=== PATIENT | male | born 1945 | race American Indian/Alaskan Native ===

== ENCOUNTER 2019-07-28 06:45 | Emergency (ER) | payer MEDICARE ==
[2019-07-28] MEDS ORDERED: dilTIAZem 25 MG/5 ML INJ IV ONE (06:59)
[2019-07-28] MEDS ORDERED: dexAMETHasone 4 MG/ML VIAL IV ONE (07:12)
[2019-07-28] MEDS ORDERED: ONDANSETRON 4 MG/2 ML INJ IV ONE (07:12)
[2019-07-28] MEDS ORDERED: MORPHINE 2 MG/1 ML INJ IV ONE ×2 (07:12→09:03)
[2019-07-28 07:33] LABS: Basophils % (Auto) 0.4 % (0.0-1.8); Eosinophils % (Auto) 0.2 % (0.0-4.3); Hematocrit 40.7 % (35.5-45.6); Hemoglobin 13.2 gm/dl (11.8-15.2); Lymphocytes # (Auto) 0.6 K/mm3 (1.2-5.4); Lymphocytes % (Auto) 7.1 % (13.4-35.0); Mean Corpuscular HGB Conc 33 % (32-34); Mean Corpuscular Volume 90 fl (84-94); Monocytes # (Auto) 0.5 K/mm3 (0.0-0.8); Monocytes % (Auto) 6.6 % (0.0-7.3); Platelet Count 148 K/mm3 (140-440); Red Blood Count 4.54 M/mm3 (3.65-5.03)
[2019-07-28 07:39] LABS: Alanine Aminotransferase 11 units/L (7-56); Albumin 3.7 g/dL (3.9-5); BUN/Creatinine Ratio 13; Bilirubin,Direct 0.4 mg/dL (0-0.2); Blood Urea Nitrogen 16 mg/dL (9-20); Calcium 9.2 mg/dL (8.4-10.2); Hemolysis Index 7
--- NOTE | 2019-07-28 07:39 | XRay Report ---
CHEST 1 VIEW INDICATION / CLINICAL INFORMATION: Dysrhythmia. COMPARISON: 08/07/2013 FINDINGS: SUPPORT DEVICES: None. HEART / MEDIASTINUM: Moderately enlarged. LUNGS / PLEURA: No significant pulmonary or pleural abnormality. No pneumothorax. ADDITIONAL FINDINGS: No significant additional findings. IMPRESSION: 1. No significant change Signer Name: Rodrigue Posey MD Signed: 07/28/2019 7:35 AM Workstation Name: [id number]
[2019-07-28 07:40] LABS: Creatine Kinase MB < 1.0 ng/mL (0.0-4.0)
[2019-07-28 07:43] LABS: INR 1.63 (0.87-1.13)
[2019-07-28 07:44] LABS: Partial Thromboplastin Time 29.5 Sec. (24.2-36.6)
--- NOTE | 2019-07-28 08:20 | Emergency Department Report ---
ED General Adult HPI - General Chief complaint: Arrhythmia/Palpitations Stated complaint: RT LEG PAIN Time Seen by Provider: 07/28/19 06:55 Source: patient, EMS Mode of arrival: Stretcher Limitations: No Limitations - History of Present Illness Initial comments: This is a 74-year-old male who presents to the hospital for an apparent gout flare. He has a history of chronic atrial fibrillation and right DVT on his route so. He presents with information from his vascular doctor who he saw on 07/24/2019. He states that he has a blockage in a "artery that goes back to the heart" of his right leg. I presume he is referring to his known right DVT. He is not having problems with his right leg whatsoever. He presents to the emergency department for what appears to be exquisite pain particularly of the left first metatarsal fracture phalangeal joint has some pain over the dorsum of his foot. He denies fever or chills. He admits he has had pain like this before related to his gout. He does have a history of diabetes. His prehospital glucose was 220 he states. -: Gradual, hour(s), days(s) Location: right, lower extremity Radiation: non-radiation Severity scale (0 -10): 0 Quality: aching Consistency: constant Improves with: none Worsens with: none Associated Symptoms: denies other symptoms Treatments Prior to Arrival: other (chronic gout medication) - Related Data Home Medications Medication Instructions Recorded Confirmed Last Taken ALBUTEROL Inhaler (OR & NICU) 18 mcg INHALATION BID 08/03/13 11/19/13 11/18/13 [ProAir HFA Inhaler] Allopurinol [Zyloprim] 100 mg PO QDAY 08/03/13 11/19/13 11/18/13 Cholecalciferol (Vitamin D3) 1,000 unit PO DAILY 08/03/13 11/19/13 11/18/13 [Vitamin D3] Fluticasone Propionate [Flonase] 50 mcg INHALATION BID PRN 08/03/13 11/19/13 11/18/13 Furosemide [Lasix] 40 mg PO DAILY 08/03/13 11/19/13 11/18/13 Lisinopril [Zestril TAB] 40 mg PO DAILY 08/03/13 11/19/13 11/18/13 Potassium 10 mg PO QDAY 08/03/13 11/19/13 11/18/13 predniSONE [Deltasone] 10 mg PO DAILY 08/03/13 11/19/13 11/18/13 Rivaroxaban [Xarelto] 20 mg PO QDAY 11/19/13 11/19/13 11/19/13 Previous Rx's Medication Instructions Recorded Last Taken Type HYDROcodone/APAP 5-325 [[place] 1 each PO Q6HR PRN #12 tablet 08/09/13 11/18/13 Rx 5/325 mg] Simethicone [Simethicone Gas 125 mg PO Q6HR PRN #20 tab.chew 08/09/13 11/18/13 Rx Relief] Colchicine 0.6 mg PO BID #30 capsule 07/28/19 Unknown Rx HYDROcodone/APAP 7.5-325 [[place] 1 each PO Q6HR PRN #10 tablet 07/28/19 Unknown Rx 7.5/325] Allergies Allergy/AdvReac Type Severity Reaction Status Date / Time dabigatran etexilate mesylate Allergy Itching Verified 08/03/13 21:04 [From Pradaxa] rivaroxaban [From Xarelto] Allergy Itching Verified 08/03/13 21:06 warfarin [Warfarin] Allergy Itching Verified 08/03/13 21:03 Iodinated Contrast Media AdvReac Severe CAN'T Verified 07/28/19 07:03 REMEMBER BLOOD THINNERS AdvReac Unknown CAN'T Uncoded 08/03/13 14:12 REMEMBER ED Review of Systems ROS: Stated complaint: RT LEG PAIN Other details as noted in HPI Constitutional: denies: chills, fever Eyes: denies: eye pain, eye discharge, vision change ENT: denies: ear pain, throat pain Respiratory: denies: cough, shortness of breath, wheezing Cardiovascular: denies: chest pain, palpitations Endocrine: no symptoms reported Gastrointestinal: denies: abdominal pain, nausea, diarrhea Genitourinary: denies: urgency, dysuria Musculoskeletal: as per HPI, joint swelling, arthralgia. denies: back pain Skin: denies: rash, lesions Neurological: denies: headache, weakness, paresthesias Psychiatric: denies: anxiety, depression Hematological/Lymphatic: denies: easy bleeding, easy bruising ED Past Medical Hx - Past Medical History Hx Hypertension: Yes Hx CVA: Yes Hx Heart Attack/AMI: Yes Hx Congestive Heart Failure: Yes Hx Deep Vein Thrombosis: Yes Hx Pulmonary Embolism: Yes Hx HIV: No Additional medical history: DVT - Surgical History Additional Surgical History: anthony filter - Social History Smoking Status: Never Smoker Substance Use Type: None - Medications Home Medications: Home Medications Medication Instructions Recorded Confirmed Last Taken Type ALBUTEROL Inhaler (OR & NICU) 18 mcg INHALATION BID 08/03/13 11/19/13 11/18/13 History [ProAir HFA Inhaler] Allopurinol [Zyloprim] 100 mg PO QDAY 08/03/13 11/19/13 11/18/13 History Cholecalciferol (Vitamin D3) 1,000 unit PO DAILY 08/03/13 11/19/13 11/18/13 History [Vitamin D3] Fluticasone Propionate [Flonase] 50 mcg INHALATION BID PRN 08/03/13 11/19/13 11/18/13 History Furosemide [Lasix] 40 mg PO DAILY 08/03/13 11/19/13 11/18/13 History Lisinopril [Zestril TAB] 40 mg PO DAILY 08/03/13 11/19/13 11/18/13 History Potassium 10 mg PO QDAY 08/03/13 11/19/13 11/18/13 History predniSONE [Deltasone] 10 mg PO DAILY 08/03/13 11/19/13 11/18/13 History HYDROcodone/APAP 5-325 [[place] 1 each PO Q6HR PRN #12 tablet 08/09/13 11/19/13 11/18/13 Rx 5/325 mg] Simethicone [Simethicone Gas 125 mg PO Q6HR PRN #20 tab.chew 08/09/13 11/19/13 11/18/13 Rx Relief] Rivaroxaban [Xarelto] 20 mg PO QDAY 11/19/13 11/19/13 11/19/13 History Colchicine 0.6 mg PO BID #30 capsule 07/28/19 Unknown Rx HYDROcodone/APAP 7.5-325 [[place] 1 each PO Q6HR PRN #10 tablet 07/28/19 Unknown Rx 7.5/325] ED Physical Exam - General Limitations: No Limitations General appearance: alert, in no apparent distress, obese - Head Head exam: Present: atraumatic, normocephalic - Eye Eye exam: Present: normal appearance. Absent: scleral icterus - ENT ENT exam: Present: mucous membranes moist - Neck Neck exam: Present: normal inspection - Respiratory Respiratory exam: Present: normal lung sounds bilaterally. Absent: respiratory distress - Cardiovascular Cardiovascular Exam: Present: tachycardia (low 100s), irregular rhythm. Absent: systolic murmur, diastolic murmur, rubs, gallop - GI/Abdominal GI/Abdominal exam: Present: soft, normal bowel sounds. 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 Absent: motor sensory deficit - Psychiatric Psychiatric exam: Present: normal affect, normal mood - Skin Skin exam: Present: warm, dry, intact, normal color. Absent: rash ED Course Vital Signs 07/28/19 07/28/19 07/28/19 06:50 06:51 06:52 Temperature 98.2 F Pulse Rate 110 H 126 H Respiratory 17 21 Rate Blood Pressure Blood Pressure [Left] O2 Sat by Pulse 96 92 Oximetry 07/28/19 07/28/19 07/28/19 06:53 07:29 07:31 Temperature Pulse Rate 120 H 101 H Respiratory 17 13 17 Rate Blood Pressure 140/79 Blood Pressure 115/82 [Left] O2 Sat by Pulse 92 95 96 Oximetry 07/28/19 07/28/19 07/28/19 07:33 08:28 08:30 Temperature Pulse Rate 96 H 91 H 95 H Respiratory Rate Blood Pressure 123/99 Blood Pressure 123/99 [Left] O2 Sat by Pulse Oximetry - Reevaluation(s) Reevaluation #1: Pain has improved with medication. Workup is otherwise unremarkable. Patient's heart rate is in the 90s. He will be given some additional analgesia and discharge is appropriate. We'll avoid Indocin as he is on anticoagulation. I can place him on some colchicine and [place]. He is instructed concerning the possibility of hyperglycemia after Decadron. He states he can check his sugars. He has appointment with his primary care provider on Tuesday. 07/28/19 09:14 07/28/19 09:15 ED Medical Decision Making - Lab Data Result diagrams: 07/28/19 07:02 07/28/19 07:02 Laboratory Results - last 24 hr 07/28/19 07/28/19 07/28/19 07:02 07:02 07:02 WBC 8.0 RBC 4.54 Hgb 13.2 Hct 40.7 MCV 90 MCH 29 MCHC 33 RDW 15.0 Plt Count 148 Lymph % (Auto) 7.1 L [place] % (Auto) 6.6 Eos % (Auto) 0.2 Baso % (Auto) 0.4 Lymph # 0.6 L [place] # 0.5 Eos # 0.0 Baso # 0.0 Seg Neutrophils % 85.7 H Seg Neutrophils # 6.9 PT 19.6 H INR 1.63 H APTT 29.5 Sodium 140 Potassium 3.8 Chloride 98.9 Carbon Dioxide 22 Anion Gap 23 BUN 16 Creatinine 1.2 Estimated GFR > 60 BUN/Creatinine Ratio 13 Glucose 260 H Calcium 9.2 Magnesium 1.00 L Total Bilirubin 1.10 Direct Bilirubin 0.4 H Indirect Bilirubin 0.7 AST 12 ALT 11 Alkaline Phosphatase 82 Total Creatine Kinase 57 CK-MB (CK-2) < 1.0 CK-MB (CK-2) Rel Index 1.7 Troponin T < 0.010 Total Protein 7.2 Albumin 3.7 L Albumin/Globulin Ratio 1.1 TSH 07/28/19 07:02 WBC RBC Hgb Hct MCV MCH MCHC RDW Plt Count Lymph % (Auto) [place] % (Auto) Eos % (Auto) Baso % (Auto) Lymph # [place] # Eos # Baso # Seg Neutrophils % Seg Neutrophils # PT INR APTT Sodium Potassium Chloride Carbon Dioxide Anion Gap BUN Creatinine Estimated GFR BUN/Creatinine Ratio Glucose Calcium Magnesium Total Bilirubin Direct Bilirubin Indirect Bilirubin AST ALT Alkaline Phosphatase Total Creatine Kinase CK-MB (CK-2) CK-MB (CK-2) Rel Index Troponin T Total Protein Albumin Albumin/Globulin Ratio TSH 1.780 Critical care attestation.: If time is entered above; I have spent that time in minutes in the direct care of this critically ill patient, excluding procedure time. ED Disposition Clinical Impression: Acute gouty arthritis, Atrial fibrillation, chronic Hyperglycemia due to type 2 diabetes mellitus Qualifiers: Diabetes mellitus long-term insulin use: without long-term use Qualified Code(s): E11.65 - Type 2 diabetes mellitus with hyperglycemia Disposition: - TO HOME OR SELFCARE Is pt being admited?: No Does the pt Need Aspirin: No Condition: Stable Instructions: Diabetes Mellitus Type 2 in Adults (ED) Additional Instructions: Check your blood sugar at least 2 times a day. The conjunctivae and shot he received may cause your blood sugar to elevate. It is possible that he may need to increase your metformin or even use insulin. If your blood sugar is going up you may take 2 metformin instead of one twice a day. It is very high come back to the emergency department. See her physician on Tuesday as planned. Rx as directed. Prescriptions: Colchicine 0.6 mg PO BID #30 capsule HYDROcodone/APAP 7.5-325 [[place] 7.5/325] 1 each PO Q6HR PRN #10 tablet PRN Reason: Pain Referrals: usual, primary care physician [Other] - 2-3 Days Time of Disposition: 09:18
[2019-07-28 08:29] VITALS: BP 123/99
== END 2019-07-28 10:35 | disposition home or self-care (01) ==
LOC: ED 06:45
DX: M10.9 Gout, unspecified (principal); I48.91 Unspecified atrial fibrillation; E11.65 Type 2 diabetes mellitus with hyperglycemia; I21.9 Acute myocardial infarction, unspecified; I82.409 Acute embolism and thrombosis of unspecified deep veins of unspecified lower extremity; I26.99 Other pulmonary embolism without acute cor pulmonale; Z86.73 Personal history of transient ischemic attack (TIA), and cerebral infarction without residual deficits; Z98.890 Other specified postprocedural states; Z79.899 Other long term (current) drug therapy; Z88.8 Allergy status to other drugs, medicaments and biological substances
CPT/HCPCS: 36415; 71045; 80048; 80076; 82550; 82553; 83735; 84443; 84484; 85025; 85610; 85730; 93005; 93010; 96374; 96375; 96376; 99284; J1100; J2270; J2405

== ENCOUNTER 2021-05-12 15:06 | Emergency (ER) | payer MEDICARE ==
[2021-05-12] MEDS ORDERED: SODIUM CHLORIDE 0.9% 1000 ML 1,000 ML IV ONE (18:11)
[2021-05-12 18:42] LABS: Basophils % (Auto) 0.6 % (0.0-1.8); Eosinophils % (Auto) 0.4 % (0.0-4.3); Hematocrit 46.5 % (35.5-45.6); Hemoglobin 15.2 gm/dl (11.8-15.2); Lymphocytes % (Auto) 11.8 % (13.4-35.0); Mean Corpuscular HGB Conc 33 % (32-34); Mean Corpuscular Volume 92 fl (84-94); Monocytes # (Auto) 0.9 K/mm3 (0.0-0.8); Monocytes % (Auto) 10.6 % (0.0-7.3); Platelet Count 160 K/mm3 (140-440); Red Blood Count 5.05 M/mm3 (3.65-5.03); Red Cell Distribution Width 16.4 % (13.2-15.2)
--- NOTE | 2021-05-12 18:54 | Event Note ---
ED Screening Note Date of service: 05/12/21 Time: 18:53 ED Screening Note: Patient complains of left ankle and right knee gout flare for the past 5 days History of gout and currently on allopurinol States he ran out of his colchicine Patient noted to have a blood pressure of 74/53, and 72/60 on repeat He denies chest pain, shortness of breath, dizziness, or headache History of diabetes, A. fib, and DVT This initial assessment/diagnostic orders/clinical plan/treatment(s) is/are subject to change based on patients health status, clinical progression and re- assessment by fellow clinical providers in the ED. Further treatment and workup at subsequent clinical providers discretion. Patient/guardian urged not to elope from the ED as their condition may be serious if not clinically assessed and managed. Initial orders include: Labs EKG 1 L normal saline Charge nurse Magdalena Moreno alerted
[2021-05-12 19:02] LABS: Alanine Aminotransferase 19 units/L (7-56); Albumin 3.8 g/dL (3.9-5); BUN/Creatinine Ratio 16; Blood Urea Nitrogen 18 mg/dL (9-20); Calcium 9.9 mg/dL (8.4-10.2); Hemolysis Index 9
[2021-05-12 22:06] LABS: Bilirubin,Urine NEG (Negative); Blood,Urine MOD (Negative); Color,Urine Yellow (Yellow); Mucus,Urine FEW /HPF
[2021-05-12] MEDS ORDERED: oxyCODONE /ACETAMINOPHEN 5-325MG TAB PO ONE (22:27)
--- NOTE | 2021-05-12 22:31 | Emergency Department Report ---
ED Lower Extremity HPI - General Chief Complaint: Extremity Problem,Nontraumatic Stated Complaint: GOUT FLARE UP Time Seen by Provider: 05/12/21 18:52 Source: patient Mode of arrival: Wheelchair Limitations: No Limitations - History of Present Illness Initial Comments: 76-year-old male with a past medical history of gout, hypertension atrial fibrillation currently on Xarelto, DVT with filter placement, CEA, and "poor circulation" presents to the hospita complaining of pain and swelling to left ankle and pain to left knee secondary to gout flare for the past 5 days. Patient states that symptoms started after accidentally twisting his left ankle. Patient take allopurinol and has run out of colchicine. Initial BP in triage 74/53 without tachycardia. Patient does not endorse feeling weak, lightheaded, and denies fever. Aspirin 3 mL normal saline in triage blood pressure improved - Related Data Home Medications Medication Instructions Recorded Confirmed Last Taken Albuterol Mdi (or & Nicu Only) 18 mcg INHALATION BID 08/03/13 11/19/13 11/18/13 [ProAir HFA Inhaler] Cholecalciferol (Vitamin D3) 1,000 unit PO DAILY 08/03/13 11/19/13 11/18/13 [Vitamin D3] Fluticasone Propionate [Flonase] 50 mcg INHALATION BID PRN 08/03/13 11/19/13 11/18/13 Furosemide [Lasix] 40 mg PO DAILY 08/03/13 11/19/13 11/18/13 Potassium 10 mg PO QDAY 08/03/13 11/19/13 11/18/13 allopurinoL [Zyloprim] 100 mg PO QDAY 08/03/13 11/19/13 11/18/13 lisinopriL [Zestril TAB] 40 mg PO DAILY 08/03/13 11/19/13 11/18/13 predniSONE 10 mg PO DAILY 08/03/13 11/19/13 11/18/13 Rivaroxaban [Xarelto] 20 mg PO QDAY 11/19/13 11/19/13 11/19/13 Previous Rx's Medication Instructions Recorded Last Taken Type HYDROcodone/APAP 5-325 [[place] 1 each PO Q6HR PRN #12 tablet 08/09/13 11/18/13 Rx 5/325 mg] Simethicone [Simethicone Gas 125 mg PO Q6HR PRN #20 tab.chew 08/09/13 11/18/13 Rx Relief] Colchicine 0.6 mg PO BID #30 capsule 07/28/19 Unknown Rx HYDROcodone/APAP 7.5-325 [[place] 1 each PO Q6HR PRN #10 tablet 07/28/19 Unknown Rx 7.5/325] Colchicine [Colcrys] 0.6 mg PO Q1HR #2 tab 05/12/21 Unknown Rx oxyCODONE /ACETAMINOPHEN [Percocet 1 tab PO Q6HR PRN #15 tab 05/12/21 Unknown Rx 5/325] Allergies Allergy/AdvReac Type Severity Reaction Status Date / Time dabigatran etexilate mesylate Allergy Itching Verified 08/03/13 21:04 [From Pradaxa] rivaroxaban [From Xarelto] Allergy Itching Verified 08/03/13 21:06 warfarin [Warfarin] Allergy Itching Verified 08/03/13 21:03 Iodinated Contrast Media AdvReac Severe CAN'T Verified 07/28/19 07:03 REMEMBER BLOOD THINNERS AdvReac Unknown CAN'T Uncoded 08/03/13 14:12 REMEMBER ED Review of Systems ROS: Stated complaint: GOUT FLARE UP Other details as noted in HPI Comment: All other systems reviewed and negative ED Past Medical Hx - Past Medical History Previous Medical History?: Yes Hx Hypertension: Yes Hx CVA: Yes Hx Heart Attack/AMI: Yes Hx Congestive Heart Failure: Yes Hx Diabetes: Yes Hx Deep Vein Thrombosis: Yes Hx Pulmonary Embolism: Yes Hx HIV: No Additional medical history: DVT - Surgical History Past Surgical History?: Yes Additional Surgical History: anthony filter - Social History Smoking Status: Never Smoker Substance Use Type: None - Medications Home Medications: Home Medications Medication Instructions Recorded Confirmed Last Taken Type Albuterol Mdi (or & Nicu Only) 18 mcg INHALATION BID 08/03/13 11/19/13 11/18/13 History [ProAir HFA Inhaler] Cholecalciferol (Vitamin D3) 1,000 unit PO DAILY 08/03/13 11/19/13 11/18/13 History [Vitamin D3] Fluticasone Propionate [Flonase] 50 mcg INHALATION BID PRN 08/03/13 11/19/13 11/18/13 History Furosemide [Lasix] 40 mg PO DAILY 08/03/13 11/19/13 11/18/13 History Potassium 10 mg PO QDAY 08/03/13 11/19/13 11/18/13 History allopurinoL [Zyloprim] 100 mg PO QDAY 08/03/13 11/19/13 11/18/13 History lisinopriL [Zestril TAB] 40 mg PO DAILY 08/03/13 11/19/13 11/18/13 History predniSONE 10 mg PO DAILY 08/03/13 11/19/13 11/18/13 History HYDROcodone/APAP 5-325 [[place] 1 each PO Q6HR PRN #12 tablet 08/09/13 11/19/13 11/18/13 Rx 5/325 mg] Simethicone [Simethicone Gas 125 mg PO Q6HR PRN #20 tab.chew 08/09/13 11/19/13 11/18/13 Rx Relief] Rivaroxaban [Xarelto] 20 mg PO QDAY 11/19/13 11/19/13 11/19/13 History Colchicine 0.6 mg PO BID #30 capsule 07/28/19 Unknown Rx HYDROcodone/APAP 7.5-325 [[place] 1 each PO Q6HR PRN #10 tablet 07/28/19 Unknown Rx 7.5/325] Colchicine [Colcrys] 0.6 mg PO Q1HR #2 tab 05/12/21 Unknown Rx oxyCODONE /ACETAMINOPHEN [Percocet 1 tab PO Q6HR PRN #15 tab 05/12/21 Unknown Rx 5/325] ED Physical Exam - General Limitations: No Limitations - Other Other exam information: General: No acute distress Head: Atraumatic Eyes: normal appearance ENT: Moist mucous membranes Neck: Normal appearance, no midline tenderness Chest: Clear to auscultation bilaterally CV: Irregularly irregular rhythm. Normal rate Abdomen: Soft, normal bowel sounds, nontender, nondistended, no rebound or guarding Back: Normal inspection Extremity: Bilateral pedal and ankle edema. Left ankle greater than right and warm to touch. Left knee warm to the touch. No skin redness noted. Patient left ankle area and left knee area are warm to touch. Limited movement seconda ry to pain. Neuro: Alert O x 3, no facial asymmetry, speech clear, no gross motor sensory deficit Psych: Appropriate behavior Skin: No rash ED Course Vital Signs 05/12/21 05/12/21 17:58 21:23 Temperature 98.9 F Pulse Rate 62 76 Respiratory 16 16 Rate Blood Pressure 133/93 Blood Pressure 74/53 [Right] O2 Sat by Pulse 97 95 Oximetry ED Lower Extremity MDM - Lab Data Result diagrams: 05/12/21 18:17 05/12/21 18:17 Lab Results 05/12/21 05/12/21 05/12/21 Range/Units 18:17 18:17 18:17 WBC 8.4 (4.5-11.0) K/mm3 RBC 5.05 H (3.65-5.03) M/mm3 Hgb 15.2 (11.8-15.2) gm/dl Hct 46.5 H (35.5-45.6) % MCV 92 (84-94) fl MCH 30 (28-32) pg MCHC 33 (32-34) % RDW 16.4 H (13.2-15.2) % Plt Count 160 (140-440) K/mm3 Lymph % (Auto) 11.8 L (13.4-35.0) % [place] % (Auto) 10.6 H (0.0-7.3) % Eos % (Auto) 0.4 (0.0-4.3) % Baso % (Auto) 0.6 (0.0-1.8) % Lymph # (Auto) 1.0 L (1.2-5.4) K/mm3 [place] # (Auto) 0.9 H (0.0-0.8) K/mm3 Eos # (Auto) 0.0 (0.0-0.4) K/mm3 Baso # (Auto) 0.0 (0.0-0.1) K/mm3 Seg Neutrophils % 76.6 H (40.0-70.0) % Seg Neutrophils # 6.4 (1.8-7.7) K/mm3 Sodium 137 (137-145) mmol/L Potassium 3.9 (3.6-5.0) mmol/L Chloride 96.3 L (98-107) mmol/L Carbon Dioxide 24 (22-30) mmol/L Anion Gap 21 mmol/L BUN 18 (9-20) mg/dL Creatinine 1.1 (0.8-1.3) mg/dL Estimated GFR > 60 ml/min BUN/Creatinine Ratio 16 % Glucose 171 H (75-100) mg/dL Calcium 9.9 (8.4-10.2) mg/dL Total Bilirubin 1.60 H (0.1-1.2) mg/dL AST 36 (5-40) units/L ALT 19 (7-56) units/L Alkaline Phosphatase 76 (35-129) units/L Troponin T < 0.010 (0.00-0.029) ng/mL NT-Pro-B Natriuret Pep 1007 H (0-900) pg/mL Total Protein 8.2 (6.3-8.2) g/dL Albumin 3.8 L (3.9-5) g/dL Albumin/Globulin Ratio 0.9 % Urine Color (Yellow) Urine Turbidity (Clear) Urine pH (5.0-7.0) Ur Specific [place] (1.003-1.030) Urine Protein (Negative) mg/dL Urine Glucose (UA) (Negative) mg/dL Urine Ketones (Negative) mg/dL Urine Blood (Negative) Urine Nitrite (Negative) Urine Bilirubin (Negative) Urine Urobilinogen (<2.0) mg/dL Ur Leukocyte Esterase (Negative) Urine WBC (Auto) (0.0-6.0) /HPF Urine RBC (Auto) (0.0-6.0) /HPF U Epithel Cells (Auto) (0-13.0) /HPF Urine Mucus /HPF 05/12/21 Range/Units Unknown WBC (4.5-11.0) K/mm3 RBC (3.65-5.03) M/mm3 Hgb (11.8-15.2) gm/dl Hct (35.5-45.6) % MCV (84-94) fl MCH (28-32) pg MCHC (32-34) % RDW (13.2-15.2) % Plt Count (140-440) K/mm3 Lymph % (Auto) (13.4-35.0) % [place] % (Auto) (0.0-7.3) % Eos % (Auto) (0.0-4.3) % Baso % (Auto) (0.0-1.8) % Lymph # (Auto) (1.2-5.4) K/mm3 [place] # (Auto) (0.0-0.8) K/mm3 Eos # (Auto) (0.0-0.4) K/mm3 Baso # (Auto) (0.0-0.1) K/mm3 Seg Neutrophils % (40.0-70.0) % Seg Neutrophils # (1.8-7.7) K/mm3 Sodium (137-145) mmol/L Potassium (3.6-5.0) mmol/L Chloride (98-107) mmol/L Carbon Dioxide (22-30) mmol/L Anion Gap mmol/L BUN (9-20) mg/dL Creatinine (0.8-1.3) mg/dL Estimated GFR ml/min BUN/Creatinine Ratio % Glucose (75-100) mg/dL Calcium (8.4-10.2) mg/dL Total Bilirubin (0.1-1.2) mg/dL AST (5-40) units/L ALT (7-56) units/L Alkaline Phosphatase (35-129) units/L Troponin T (0.00-0.029) ng/mL NT-Pro-B Natriuret Pep (0-900) pg/mL Total Protein (6.3-8.2) g/dL Albumin (3.9-5) g/dL Albumin/Globulin Ratio % Urine Color Yellow (Yellow) Urine Turbidity Clear (Clear) Urine pH 5.0 (5.0-7.0) Ur Specific [place] 1.019 (1.003-1.030) Urine Protein 100 mg/dl (Negative) mg/dL Urine Glucose (UA) 150 (Negative) mg/dL Urine Ketones Neg (Negative) mg/dL Urine Blood Mod (Negative) Urine Nitrite Neg (Negative) Urine Bilirubin Neg (Negative) Urine Urobilinogen 4.0 (<2.0) mg/dL Ur Leukocyte Esterase Neg (Negative) Urine WBC (Auto) 1.0 (0.0-6.0) /HPF Urine RBC (Auto) 3.0 (0.0-6.0) /HPF U Epithel Cells (Auto) < 1.0 (0-13.0) /HPF Urine Mucus Few /HPF - Radiology Data Radiology results: report reviewed LEFT ANKLE 2 VIEW(S) INDICATION / CLINICAL INFORMATION: pain after twisting ankle, hx of gout COMPARISON: None available. FINDINGS: BONES / JOINT(S): No acute fracture or subluxation. Moderate polyarticular degenerative changes of the midfoot and hindfoot. SOFT TISSUES: No significant abnormality. ADDITIONAL FINDINGS: None. - Medical Decision Making 76-year-old male presents to the hospital with acute gout flare. Reports a twisting ankle 7 days ago. X-ray unremarkable. Asymptomatic hypotension that resolved with 1 L normal saline. No signs of sepsis or volume depletion. Patient has history of A. fib, CHF with lower extremity edema. No shortness of breath. Patient received Percocet and colchicine and will be discharged on the same. NSAIDs contraindicated since patient is currently on Xarelto for atrial fibrillation Patient is a diabetic and on med therefore steroids not provided. Critical care attestation.: If time is entered above; I have spent that time in minutes in the direct care of this critically ill patient, excluding procedure time. ED Disposition Clinical Impression: Gout attack Disposition: 01 HOME / SELF CARE / HOMELESS Is pt being admited?: No Does the pt Need Aspirin: No Condition: Stable Instructions: Low-Purine Eating Plan Additional Instructions: Take the medication as prescribed. Follow-up with your doctor or doctor/clinic provided. Return if symptoms worsen as indicated by your discharge instructions. Prescriptions: Colchicine [Colcrys] 0.6 mg PO Q1HR #2 tab oxyCODONE /ACETAMINOPHEN [Percocet 5/325] 1 tab PO Q6HR PRN #15 tab PRN Reason: Pain , Severe (7-10) Referrals: ROMAINE SANTACRUZ MD [Primary Care Provider] - 3-5 Days Time of Disposition: 23:23
--- NOTE | 2021-05-12 22:56 | XRay Report ---
LEFT ANKLE 2 VIEW(S) INDICATION / CLINICAL INFORMATION: pain after twisting ankle, hx of gout COMPARISON: None available. FINDINGS: BONES / JOINT(S): No acute fracture or subluxation. Moderate polyarticular degenerative changes of th e midfoot and hindfoot. SOFT TISSUES: No significant abnormality. ADDITIONAL FINDINGS: None. Signer Name: Benito Durbin MD Signed: 05/12/2021 10:51 PM Workstation Name: [id number]
[2021-05-12] MEDS ORDERED: COLCHICINE 0.6 MG TAB PO ONE (23:00)
[2021-05-12] MEDS ORDERED: predniSONE 20 MG TAB PO ONE (23:22)
[2021-05-13] MEDS ORDERED: oxyCODONE /ACETAMINOPHEN 5-325MG TAB PO ONE (00:09)
[2021-05-13] MEDS ORDERED: dexAMETHasone 20 MG/5 ML VIAL IV ONE (00:10)
[2021-05-13] MEDS ORDERED: COLCHICINE 0.6 MG TAB PO ONE (00:10)
[2021-05-13] MEDS ORDERED: GABAPENTIN 300 MG CAP PO ONE (00:33)
[2021-05-13 01:04] VITALS: BP 138/90
== END 2021-05-13 01:05 | disposition home or self-care (01) ==
LOC: ED 15:06
DX: M10.9 Gout, unspecified (principal); I11.0 Hypertensive heart disease with heart failure; E11.8 Type 2 diabetes mellitus with unspecified complications; Z86.73 Personal history of transient ischemic attack (TIA), and cerebral infarction without residual deficits; I26.99 Other pulmonary embolism without acute cor pulmonale; I82.409 Acute embolism and thrombosis of unspecified deep veins of unspecified lower extremity; Z98.890 Other specified postprocedural states; Z88.3 Allergy status to other anti-infective agents; Z88.4 Allergy status to anesthetic agent; Z88.8 Allergy status to other drugs, medicaments and biological substances; Z88.9 Allergy status to unspecified drugs, medicaments and biological substances; Z91.041 Radiographic dye allergy status
CPT/HCPCS: 36415; 73600; 80053; 81001; 83880; 84484; 85025; 96361; 96374; 99284; J1100; J7030; J7512